=== PATIENT | female | born 1975 | race African-American/Black ===

== ENCOUNTER 2017-05-30 17:44 | Emergency (ER) | payer OTHER ==
[~2017-05-30] VITALS: Ht 177.8 cm; Wt 74.1 kg
[~2017-05-30 17:44] MED LIST: ABILIFY2 MG; CELEXA10 MG PO; NEXIUM 20MG20 MG; ORTHO TRI-CYCLE1 TA2 PO
[2017-05-30 17:47] VITALS: TEMP 98.7
[2017-05-30 18:34] LABS: BASO % 0.3 % (0.0-2.0); EOS % 0.2 % (0-4.0); GRAN % 63.3 % (42.2-75.2); HEMOGLOBIN 15.4 g/dl (12.5-16.0); LYMPH # 1.7 (1.2-3.4); LYMPH % 27.7 % (20.0-51.0); MEAN CELL VOLUME 96 fl (80.0-100.0); MEAN CORPUSCULAR HEMOGLOBIN 34 pg (27.0-31.0); MEAN CORPUSCULAR HGB CONC 36 g/dl (33.0-37.0); MEAN PLATELET VOLUME 9.6 fl (7.4-10.4); MONO # 0.5 (0.1-0.6); MONO % 8.3 % (1.7-9.3); PLATELET COUNT 340 K/mm3 (130-400); REDCELL DISTRIBUTION WIDTH-CV 12.8 % (11.5-14.5)
[2017-05-30 18:45] LABS: ALANINE AMINOTRANSFERASE 29 U/L (9-52); ALKALINE PHOSPHATASE 55 U/L (50-136); ANION GAP 8 mmol/L (7-16); AST,SGOT 24 U/L (15-37); BILIRUBIN,TOTAL 0.4 mg/dL (0.0-1.0); BLOOD UREA NITROGEN 9 mg/dL (7-17); CALCIUM 11.2 mg/dL (8.4-10.2); CARBON DIOXIDE 26 mmol/L (22-30); CHLORIDE 105 mmol/L (98-107); CREATININE, serum 0.58 mg/dL (0.52-1.25); GLUCOSE 106 mg/dL (74-106); POTASSIUM 3.8 mmol/L (3.4-5.0); SODIUM 139 mmol/L (137-145); TOTAL PROTEIN 7.9 gm/dL (6.4-8.2)
[2017-05-30 18:47] LABS: ACETAMINOPHEN < 10 ug/mL (10-30)
[2017-05-30 18:48] LABS: ALCOHOL(ethanol),MEDICAL < 10 mg/dL; SALICYLATE < 1.0 mg/dL
[2017-05-30 18:53] LABS: TRICYCLIC ANTIDEPRESS URINE NEGATIVE
[2017-05-31] MEDS ORDERED: LATUDA40 MG PO (00:44)
[2017-05-31] MEDS ORDERED: BUSPAR DIVIDOSE15 MG PO (00:47)
[2017-05-31] MEDS ORDERED: CYMBALTA 60MG60 MG PO (00:48)
[2017-05-31 07:11] VITALS: BP 105/48; PULSE 80
== END 2017-05-31 07:00 ==
LOC: COL.ER 17:44
PROVIDERS: Nurse Practitioner
DX: F32.9 Major depressive disorder, single episode, unspecified (principal); R45.851 Suicidal ideations; Z98.890 Other specified postprocedural states